=== PATIENT | male | born 1980 | race Two or more races ===

== ENCOUNTER 2021-09-20 17:33 | Emergency (ER) | payer MEDICAID, OTHER ==
[~2021-09-20] VITALS: Ht 180.3 cm; Wt 81.6 kg
[2021-09-20 17:46] VITALS: BP 125/93
== END 2021-09-20 22:47 | disposition left against medical advice (07) ==
LOC: ER 17:33
DX: S09.90XA Unspecified injury of head, initial encounter (principal); Z53.21 Procedure and treatment not carried out due to patient leaving prior to being seen by health care provider; W01.198A Fall on same level from slipping, tripping and stumbling with subsequent striking against other object, initial encounter; Y92.89 Other specified places as the place of occurrence of the external cause; Y93.89 Activity, other specified; Y99.8 Other external cause status
CPT/HCPCS: 70450